=== PATIENT | female | born 1995 | race Caucasian/White ===

== ENCOUNTER → 2022-07-18 | Outpatient (CLI) | payer MEDICAID ==
[~2022-07-18] MED LIST: DOCU-143 PO; IBUP-1780 PO; OXYC1TAB87 PO; PREN1TAB79 PO; SUCR1TAB36 PO
== END ==
LOC: CARD 12:36
PROVIDERS: ATTEND Family Medicine
DX: R00.2 Palpitations (principal)
CPT/HCPCS: 93306

== ENCOUNTER → 2022-07-27 | Outpatient (CLI) | payer MEDICAID ==
[2022-07-27 10:12] VITALS: BP 121/74
--- NOTE | 2022-07-27 15:11 | Cardiology Stress Test Report ---
Stress Test Report Date of Procedure/Referring: Date of Procedure: Jul 27, 2022 PCP Avery Lewis MD Admitting Physician Admitting Physician: Attending Physician: Gita Watson Indications: CP Baseline Heart Rate: 79 Baseline Blood Pressure: Blood Pressure Systolic: 121 Blood Pressure Diastolic: 74 Baseline EKG: Baseline EKG: NSR Summary/Conclusion: Summary: In summary, the patient started exercising with a baseline heart rate, blood pressure and EKG mentioned above Patient was able to exercise for a total of 10 minutes on Jason protocol, METs 11.7 Maximum heart rate 166 Maximum blood pressure 134/75 Stress EKG, Minimal nondiagnostic changes Recovery EKG , Return to baseline Conclusion: 1. Good exercise tolerance for a total of 10 minutes on Jason protocol, 11.7 METs, achieving 86 percent of maximum expected heart rate 2. Minimal nondiagnostic EKG changes with exercise returned to baseline during recovery 3. No arrhythmia was noted Copy Copies To 1: [facility] [place] AVERY LEWIS MD Jul 27, 2022 15:11
== END ==
LOC: CARD 10:00
PROVIDERS: ATTEND Physician Assistant
DX: R07.9 Chest pain, unspecified (principal); R00.2 Palpitations
CPT/HCPCS: 93017